=== PATIENT | female | born 1950 ===

== ENCOUNTER 2018-09-05 17:28 | Inpatient (IN) | payer MEDICARE, MEDICAID ==
[2018-09-05 17:28] VITALS: BMI 28.5
[2018-09-05 17:36] VITALS: O2SAT 98
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
[2018-09-05 19:07] LABS: BASO % 0.3 % (0.0-2.0); EOS % 0.3 % (0.0-4.0); HEMOGLOBIN 13.1 g/dL (12.0-16.0); LYMPH # 1.9 K/uL (1.0-4.3); LYMPH % 19.3 % (20.0-40.0); MEAN CELL VOLUME 90.9 fl (81.0-99.0); MEAN CORPUSCULAR HGB CONC 34.1 g/dL (33.0-37.0); MEAN PLATELET VOLUME 8.8 fl (7.2-11.7); MONO # 0.6 K/uL (0.0-0.8); MONO % 6.3 % (0.0-10.0); NEUT # 7.4 K/uL (1.8-7.0); NEUT % 73.8 % (50.0-75.0); NRBC % 0.1 % (0.0-0.0); RBC 4.23 Mil/uL (3.80-5.20); RED CELL DISTRIBUTION WIDTH 13.4 % (11.5-14.5); WHITE BLOOD COUNT 10.1 K/uL (4.8-10.8)
[2018-09-05 19:24] LABS: ALB/GLOB RATIO 1.4 (1.0-2.1); ALBUMIN 4.7 g/dL (3.5-5.0); ALT/SGPT 32 U/L (9-52); AST/SGOT 25 U/L (14-36); BLOOD UREA NITROGEN 10 mg/dl (7-17); CALCIUM 9.7 mg/dL (8.4-10.2); GFR NON-AFRICAN AMERICAN > 60
[2018-09-05 19:37] LABS: BARBITURATES, UR POSITIVE (NEGATIVE); BENZODIAZEPINES, UR POSITIVE (NEGATIVE); OPIATES, UR NEGATIVE (NEGATIVE); PHENCYCLIDINE, UR NEGATIVE (NEGATIVE)
[2018-09-05] MEDS ORDERED: Potassium Chloride 20 mEq ER Tab PO ONE ×2 (19:44→20:27)
[2018-09-05] MEDS ORDERED: Bismuth Subsalicylate 262 mg/15 ml Sus (240 ml) PO PRN (22:33)
[2018-09-05] MEDS ORDERED: Alum-Mag Hydrox-Simethicone Susp (30 mL) PO PRN (22:33)
[2018-09-05] MEDS ORDERED: Magnesium Hydroxide Susp 30 ml UD PO PRN (22:33)
[2018-09-05] MEDS ORDERED: Apap-Butalbital-Caffeine 325-50-40mg Tab PO PRN (22:56)
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
[2018-09-05] MEDS: Oxycodone/Acetaminophen 5/325 mg Tab PO PRN (23:46)
[2018-09-06] MEDS: Oxycodone/Acetaminophen 5/325 mg Tab PO PRN ×2 (04:26→19:08)
[2018-09-06 06:18] LABS: ALB/GLOB RATIO 1.3 (1.0-2.1); ALBUMIN 4.1 g/dL (3.5-5.0); ALT/SGPT 29 U/L (9-52); AST/SGOT 22 U/L (14-36); BLOOD UREA NITROGEN 14 mg/dl (7-17); CALCIUM 9.4 mg/dL (8.4-10.2); GFR NON-AFRICAN AMERICAN > 60
[2018-09-06 06:28] LABS: T4 7.15 ug/dl (5.5-11.0)
[2018-09-06 07:42] LABS: HDL CHOLESTEROL 43 MG/DL (30-70)
[2018-09-06 07:53] LABS: LDL CHOLESTEROL 116 mg/dL (0-129)
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
[2018-09-06] MEDS: Metoprolol Succinate 100 mg XL Tab PO SCH (09:22)
--- NOTE | 2018-09-06 09:22 | RAD ---
Date of service: 09/05/2018 HISTORY: cough COMPARISON: No prior. FINDINGS: LUNGS: No consolidation appreciated. PLEURA: No significant pleural effusion identified, no pneumothorax apparent. CARDIOVASCULAR: No aortic atherosclerotic calcification present. Probable mild cardiomegaly No significant appearing pulmonary venous congestion. OSSEOUS STRUCTURES: Thoracic spondylosis. Bilateral shoulder arthrosis. VISUALIZED UPPER ABDOMEN: Normal. OTHER FINDINGS: None. IMPRESSION: No consolidative infiltrate. Mild cardiomegaly.
--- NOTE | 2018-09-06 10:02 | CARD ---
APPROVED REPORT Date of service: 09/05/2018 EKG Measurement Heart [id number] <Conclusion> Normal sinus rhythm Moderate voltage criteria for LVH, may be normal variant Nonspecific ST abnormality Abnormal ECG
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
[2018-09-06 13:12] LABS: FOLATE 8.8 ng/mL
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
[2018-09-06] MEDS: Pantoprazole 40 mg EC Tab PO SCH (17:34)
[2018-09-07] MEDS: Oxycodone/Acetaminophen 5/325 mg Tab PO PRN ×4 (06:24→21:07)
[2018-09-07] MEDS: Pantoprazole 40 mg EC Tab PO SCH (08:45)
[2018-09-07] MEDS: Metoprolol Succinate 100 mg XL Tab PO SCH (08:46)
--- NOTE | 2018-09-07 10:29 | PCM.PYCHPN ---
Psychiatric Progress Note - Psychiatric Progress Note Patient seen today, length of contact: Pt evaluated, case discussed w/ team, chart reviewed Patient Chief Complaint: "My son made me come here." Problems Identified/Issues Discussed: Patient submitted a 48 hr letter requesting to be discharged. She denies acute depression/anxiety/AH/VH/SI/HI. Patient has neurocognitive deficits and has poor insight into her memory deficits. Will obtain collateral history from patient's son today. MOCA- 1430; patient has visuospatial/exective, naming, memory, attention, language, abstraction deficits. Medication Change: No Medical Record Reviewed: Yes Consults ordered or reviewed: Medicine consult Mental Status Examination - Cognitive Function Orientation: Person, Place, Situation, Time Memory: Impaired Attention: Poor Concentration: Poor Association: Loose Fund of Knowledge: Poor Decription of patient's judgement and insights: Chronic limitations in I/J due to neurocognitive deficits - Mood Mood: Neutral - Affect Affect: Broad - Speech Speech: Appropriate - Formal Thought Process Formal Thought Process: Loosening of associations Psychotic Thoughts and Behaviors: Denies AH/VH - Suicidal Ideation Suicidal Ideation: No - Homicidal Ideation Homicidal Ideation: No Goal/Treatment Plan - Goal/Treatment Plan Need for Continued Stay: Remain at risks for inpatient hospitalization, Discharge may exacerbated symptoms Progress Toward Problem(s) and Goals/Treatment Plan: Major Depressive Disorder; Generalized Anxiety Disorder; Major Neurocognitive Disorder -Individual and group therapy -Psychoeducation -Obtain collateral history from family -Continue Remeron -Start Aricept 5 mg PO HS -Ativan PRN anxiety -Medicine consult -Disposition planning- likely discharge tomorrow as patient does not meet criteria for involuntary psychiatric commitment Estimated Date of D/C: 09/08/18
[2018-09-08 06:11] VITALS: BP 174/90; PULSE 69; RESP 19; TEMP 97.2
[2018-09-08] MEDS: Metoprolol Succinate 100 mg XL Tab PO SCH (08:25)
[2018-09-08] MEDS: Pantoprazole 40 mg EC Tab PO SCH (08:25)
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
== END 2018-09-08 10:20 | disposition home or self-care (01) | DRG 881 ==
LOC: H.ER 17:28 → H.ERHOLD 20:29 → H.STEP 22:32
PROVIDERS: ADMIT Psychiatry & Neurology Psychiatry; ATTEND Psychiatry & Neurology Psychiatry
PROC: GZHZZZZ Group Psychotherapy (ICD-10-PCS; principal; 2018-09-05)
DX: F32.9 Major depressive disorder, single episode, unspecified (principal); K21.9 Gastro-esophageal reflux disease without esophagitis; Z86.73 Personal history of transient ischemic attack (TIA), and cerebral infarction without residual deficits; I10 Essential (primary) hypertension; K29.70 Gastritis, unspecified, without bleeding; F41.1 Generalized anxiety disorder; Z88.1 Allergy status to other antibiotic agents; Z88.3 Allergy status to other anti-infective agents; Z88.0 Allergy status to penicillin; M25.532 Pain in left wrist; W01.0XXA Fall on same level from slipping, tripping and stumbling without subsequent striking against object, initial encounter; G43.909 Migraine, unspecified, not intractable, without status migrainosus; Z62.810 Personal history of physical and sexual abuse in childhood; F01.50 Vascular dementia, unspecified severity, without behavioral disturbance, psychotic disturbance, mood disturbance, and anxiety